=== PATIENT | male | born 1970 | race Caucasian/White ===

== ENCOUNTER 2016-08-07 13:49 | Emergency (ER) | payer OTHER ==
[~2016-08-07] VITALS: Wt 71.5 kg
[2016-08-07 13:55] VITALS: Wt 71.5 kg
[2016-08-07] MEDS ORDERED: KETOROLAC 30 MG INJ IM STA (15:04)
[2016-08-07] MEDS ORDERED: LYRI25 PO (15:08)
[2016-08-07] MEDS ORDERED: FLUO10CA17 PO (15:08)
[2016-08-07] MEDS ORDERED: IBUP-1542 PO (15:08)
[2016-08-07] MEDS ORDERED: LORAZEPAM 0.5 MG TAB PO ONE (15:30)
[2016-08-07] MEDS ORDERED: FLUOXETINE 20 MG CAP PO ONE (15:30)
[2016-08-07] MEDS ORDERED: FLUOXETINE 10 MG CAP PO ONE (15:30)
[2016-08-07 15:40] VITALS: BP 134/80; PULSE 100; RESP 20; TEMP 98.8
--- NOTE | 2016-08-25 19:53 | ERD ---
ER Documentation Chief Complaint Date/Time DATE: 08/25/16 TIME: 19:51 Chief Complaint BACK PAIN AND SUICIDAL IDEATION FOR THE PAST FEW DAYS. HX OF DEPRESION HPI 46-year-old woman with a history of back pain and depression presents with low back pain similar to previous episodes. She denies suicidal homicidal ideation and states she ran out of her fluoxetine and would like a refill of her antidepressant because she has been feeling depressed lately. She denies weight loss, no fevers or chills, no chest pain or shortness of breath, no paresis or paresthesias. Patient does have follow-up appointment with her PMD and psychiatrist. ROS All systems reviewed and are negative except as per history of present illness. Medications Home Meds Active Scripts Ibuprofen* (Ibuprofen*) 600 Mg Tablet, 600 MG PO Q8 for PAIN AND/OR INFLAMMATION , #30 TAB Prov:STEVEN RIVERA MD 08/07/16 Pregabalin* (Lyrica*) 25 Mg Capsule, 25 MG PO BID for PAIN, #30 CAP Prov:STEVEN RIVERA MD 08/07/16 Fluoxetine Hcl* (Fluoxetine Hcl*) 10 Mg Capsule, 10 MG PO DAILY, #30 CAP Prov:STEVEN RIVERA MD 08/07/16 Allergies Allergies: Coded Allergies: No Known Allergy (Unverified , 08/07/16) PMhx/Soc Depression, chronic back pain History of Surgery: Yes (back x 3) Anesthesia Reaction: No Hx Neurological Disorder: No Hx Respiratory Disorders: No Hx Cardiac Disorders: No Hx Psychiatric Problems: Yes (depression) Hx Miscellaneous Medical Probl: Yes (umbilical hernia ) Hx Alcohol Use: No Hx Substance Use: No Hx Tobacco Use: No Smoking Status: Never smoker FmHx Family History: No diabetes Physical Exam Vitals See nurse's notes Physical Exam GENERAL: Well-developed, well-nourished, well-hydrated, in no apparent distress , looks nontoxic in appearance HEENT: Moist mucous membranes, pink conjunctiva, no cervical spine tenderness or step-off deformities, no goiter, no jaundice or icterus, extraocular movements intact without pain. No submandibular induration, and no pharyngeal erythema NEURO: Alert and oriented 3, cranial nerves II through XII intact bilaterally, pupils equal round reactive to light, no focal deficits or facial asymmetry, sensation intact distally Strength 5/5 in upper and lower extremities bilaterally CARDIAC: Regular rate and rhythm, no murmurs rubs or gallops LUNGS: Clear bilaterally no wheezing crackles or stridor ABDOMEN: Soft nontender, no guarding, no rigidity, no rebound, no psoas sign no obturator sign. Normoactive bowel sounds SKIN: Warm and dry to touch, no abrasions, contusions, or hematomas, no lacerations, no ecchymosis, no target lesions, and without ulcers EXTREMITIES: No clubbing cyanosis or edema, calves are bilaterally symmetrical, no Homans sign, no popliteal cord sign. Distal pulses equal and bilateral PSYCH: Depressed affect Results 24 hrs Current Medications Medications (Trade) Dose Ordered Sig/Beverly Route PRN Reason Start Time Stop Time Status Last Admin Dose Admin Ketorolac Tromethamine (Toradol) 30 mg ONCE STAT IM 08/07/16 15:04 08/07/16 15:07 DC 08/07/16 15:23 Lorazepam (Ativan) 0.5 mg ONCE ONCE PO 08/07/16 15:30 08/07/16 15:31 DC 08/07/16 15:23 Fluoxetine HCl (Prozac) 10 mg ONCE ONCE PO 08/07/16 15:30 08/07/16 15:31 Cancel Fluoxetine HCl (Prozac) 10 mg ONCE ONCE PO 08/07/16 15:30 08/07/16 15:31 DC 08/07/16 15:30 Procedures/MDM I spoke to the patient at the bedside regarding her presentation and symptomatology, she simply would like a refill of her medications as fluoxetine in the past did help with depression, she denies active suicidal homicidal ideation at this time. I administered Toradol 30 mg intramuscular injection, fluoxetine and lorazepam orally for her symptoms with good effect. Differential diagnoses considered, included but not limited to acute coronary syndrome, pulmonary embolism, aortic dissection, abdominal aortic aneurysm, sepsis, stroke, meningitis, encephalitis, pneumonia, appendicitis, cholecystitis , bowel obstruction, pyelonephritis, nephrolithiasis, cystitis, as well as metabolic, hematologic, and electrolyte abnormalities. As well as abscess, cellulitis, fractures, and dislocations. Patient feels much better at this time, and vital signs are normal, symptoms have improved. I did give strict instructions to return to the ED if symptoms continue or worsen, patient will otherwise follow-up with primary care physician. Patient understood instructions and agreed to plan. Departure Diagnosis: Primary Impression: Back sprain Additional Impression: Depression Depression Type: major depressive disorder Major depression recurrence: single episode Active/Remission status: currently active Major depression episode severity: moderate Qualified Code: F32.1 - Moderate single current episode of major depressive disorder Condition: Good Patient Instructions: Back Sprain/Strain, Depression STEVEN RIVERA MD Aug 25, 2016 19:53
== END 2016-08-07 16:35 | disposition home or self-care (01) ==
LOC: E/R 13:49
DX: S33.9XXA Sprain of unspecified parts of lumbar spine and pelvis, initial encounter (principal); R40.2252 Coma scale, best verbal response, oriented, at arrival to emergency department; F32.1 Major depressive disorder, single episode, moderate; R40.2142 Coma scale, eyes open, spontaneous, at arrival to emergency department; R40.2362 Coma scale, best motor response, obeys commands, at arrival to emergency department; X58.XXXA Exposure to other specified factors, initial encounter; Y92.9 Unspecified place or not applicable
CPT/HCPCS: 96372; J1885

== ENCOUNTER 2016-09-24 12:06 | Emergency (ER) | payer OTHER ==
[~2016-09-24] VITALS: Wt 68.0 kg
[~2016-09-24 12:06] MED LIST: FLUO10CA17 PO; IBUP-1542 PO; LYRI25 PO
[2016-09-24 14:34] LABS: ADD SCAN DIFF NO
[2016-09-24 14:36] LABS: ABNORMAL IP MESSAGE 1; BASOPHILS % 0.5 % (0.0-2.0); EOSINOPHILS # 0.1 10^3/ul (0.0-0.5); EOSINOPHILS % 2.3 % (0.0-7.0); HEMATOCRIT 34.4 % (42.0-52.0); HEMOGLOBIN 11.1 g/dl (14.0-18.0); LYMPHOCYTES # 0.9 10^3/ul (0.8-2.9); LYMPHOCYTES % 23.8 % (15.0-51.0); MEAN CORPUSCULAR HEMOGLOBIN 26.5 pg (29.0-33.0); MEAN CORPUSCULAR HGB CONC 32.3 g/dl (32.0-37.0); MEAN CORPUSCULAR VOLUME 82.1 fl (82.0-101.0); MONOCYTE # 0.3 10^3/ul (0.3-0.9); MONOCYTES % 7.9 % (0.0-11.0); NEUTROPHIL # 2.6 10^3/ul (1.6-7.5); NEUTROPHILS % 65.5 % (39.0-77.0); RED BLOOD COUNT 4.19 10^6/ul (4.70-6.10); RED CELL DISTRIBUTION WIDTH 17.9 % (11.5-14.5); WHITE BLOOD COUNT 3.9 10^3/ul (4.8-10.8)
[2016-09-24 14:47] LABS: ALBUMIN 3.5 g/dl (3.3-4.9); CHLORIDE 104 mmol/L (97-110)
[2016-09-24 14:48] LABS: POTASSIUM 3.6 mmol/L (3.5-5.1); SODIUM 141 mmol/L (135-144)
[2016-09-24 14:50] LABS: ALANINE AMINOTRANSFERASE 30 IU/L (13-69); ALBUMIN/GLOBULIN RATIO 0.92; ALKALINE PHOSPHATASE 76 IU/L (42-121); ANION GAP 13 (8-16); ASPARTATE AMINO TRANSFERASE 39 IU/L (15-46); BILIRUBIN,INDIRECT 0.6 mg/dl (0-1.1); BILIRUBIN,TOTAL 0.6 mg/dl (0.2-1.3); BLOOD UREA NITROGEN 9 mg/dl (7-20); CALCIUM 8.7 mg/dl (8.4-10.2); CARBON DIOXIDE 28 mmol/L (21-31); GLUCOSE 173 mg/dl (70-220); TOTAL PROTEIN 7.3 g/dl (6.1-8.1)
[2016-09-24 14:51] LABS: ACETAMINOPHEN < 10.0 ug/ml (10.0-30.0); ADD UMIC YES; ETHANOL < 10.0 mg/dl; SALICYLATE < 1.0 mg/dl (5.0-30.0); URINE BILIRUBIN (Dip) NEGATIVE (NEGATIVE); URINE BLOOD (Dip) 3+ (NEGATIVE); URINE COLOR YELLOW (YELLOW); URINE KETONES (Dip) TRACE (NEGATIVE); URINE LEUKOCYTE ESTERASE (Dip) NEGATIVE (NEGATIVE); URINE NITRITE (Dip) NEGATIVE (NEGATIVE); URINE TOTAL PROTEIN (Dip) NEGATIVE (NEGATIVE); URINE UROBILINOGEN (Dip) 0.2 E.U./dL (0.1-1.0)
[2016-09-24 15:04] LABS: MUCUS,URINE RARE
[2016-09-24 15:13] LABS: BARBITURATES Negative (NEGATIVE); BENZODIAZEPINES Negative (NEGATIVE); CANNABINOIDS Negative (NEGATIVE); COCAINE Negative (NEGATIVE); OPIATES Negative (NEGATIVE)
[2016-09-24 15:28] LABS: PLATELET COUNT 76 10^3/UL (140-415)
[2016-09-24] MEDS ORDERED: IBUPROFEN 800 MG TAB PO ONE (15:30)
--- NOTE | 2016-09-24 15:39 | PSY ---
Date/Time of Note Date/Time of Note DATE: 09/24/16 TIME: 15:29 Psychiatric Subjective Eval Subjective Evaluation Chief Complaint: DEPRESSION AND SUICIDAL IDEATION FOR FEW MONTHS. NO PLAN .NO ETOH OR DRUGS Reason for consult: Suicidal ideation History of present illness This is a 46 year old single male who presented to the ED with complaints of auditory hallucinations and suicidal ideation. A sign language interpreter was used a this is his primary language. A psychiatric consult was requested due to his report of feeling suicidal. The patient was cooperative but guarded during the interview. He denied any history of substance abuse. He denied any family history. He did complain of having auditory hallucinations but would not say what the voices were saying. He also reports having problems with sleep and excessive worry. He reports a decline in appetite and loss of interest in things. He also reports that life is not worth living. He is currently unemployed. He denied any specific plan, but was clear that he was fearful that he may act in some manner to harm himself if not admitted. Past psychiatric history He denied any prior psychiatric history. Hospitalization: no Medical history Problems Medical Problems: (1) Back sprain Status: Acute (2) Back sprain Status: Acute (3) Depression Status: Acute (4) Depression Status: Acute (5) Suicidal ideation Status: Acute Allergies: Coded Allergies: No Known Allergy (Unverified , 09/24/16) Substance Abuse Substance use: No known substance abuse Social History Marital status: single Level of education: 9th grade DPA/Conservatorship: No Occupation/Group Home: unemployed Psychiatric Objective Eval Review of Systems: Review of Systems: Applicable Constitutional: Normal Eyes: Normal ENT: Normal Neck: Normal Respiratory: Normal Chest/Breast: Normal Cardiovascular: Normal GI: Normal Genitourinary: Normal Skin: Normal Lymphatic: Normal Musculoskeletal: Normal Neurological: Normal Other: Loss of appetite. Mental Status Examination: Appearance: Groomed Eye Contact: Good Psychomotor Activity: Normal Behavior: Cooperative, Guarded Speech: Clear AFFECT: Flat, Depressed Mood: Depressed Though Process: Linear Thought Content: Hallucinations Suicidal: Yes Homicidal: No Orientation: x4 Cognition: Alert Insight: Intact Judgement: Intact Attention Span: Intact Laboratory Results Laboratory Tests Test 09/24/16 14:20 Acetaminophen Level < 10.0ug/ml Alanine Aminotransferase (ALT/SGPT) 30IU/L Albumin 3.5g/dl Albumin/Globulin Ratio 0.92 Alkaline Phosphatase 76IU/L Anion Gap 13 Aspartate Amino Transf (AST/SGOT) 39IU/L Basophils # 0.010^3/ul Basophils % 0.5% Blood Urea Nitrogen 9mg/dl Calcium Level 8.7mg/dl Carbon Dioxide Level 28mmol/L Chloride Level 104mmol/L Creatinine 0.70mg/dl Direct Bilirubin 0.00mg/dl Eosinophils # 0.110^3/ul Eosinophils % 2.3% Ethyl Alcohol Level < 10.0mg/dl Globulin 3.80g/dl Glucose Level 173mg/dl Hematocrit 34.4% Hemoglobin 11.1g/dl Indirect Bilirubin 0.6mg/dl Lymphocytes # 0.910^3/ul Lymphocytes % 23.8% Mean Corpuscular Hemoglobin 26.5pg Mean Corpuscular Hemoglobin Concent 32.3g/dl Mean Corpuscular Volume 82.1fl Mean Platelet Volume fl Monocytes # 0.310^3/ul Monocytes % 7.9% Neutrophils # 2.610^3/ul Neutrophils % 65.5% Nucleated Red Blood Cells # 0.010^3/ul Nucleated Red Blood Cells % 0.0/100WBC Platelet Count 7610^3/UL Potassium Level 3.6mmol/L Red Blood Count 4.1910^6/ul Red Cell Distribution Width 17.9% Salicylates Level < 1.0mg/dl Sodium Level 141mmol/L Total Bilirubin 0.6mg/dl Total Protein 7.3g/dl Urine Amphetamines Screen Negative Urine Barbiturates Negative Urine Benzodiazepines Screen Negative Urine Bilirubin NEGATIVE Urine Cannabinoids Negative Urine Clarity CLEAR Urine Cocaine Screen Negative Urine Color YELLOW Urine Glucose 0.25%% Urine Hemoglobin 3+ Urine Ketones TRACE Urine Leukocyte Esterase NEGATIVE Urine Microscopic RBC 5-10/HPF Urine Microscopic WBC 0-2/HPF Urine Mucus RARE Urine Nitrite NEGATIVE Urine Opiates Screen Negative Urine Specific [place] 1.020 Urine Total Protein NEGATIVE Urine Urobilinogen 0.2 E.U./dL Urine pH 6.5 White Blood Count 3.910^3/ul Assessment and Plan Assessment/Diagnosis [place] I: F33.3 Major depression, severe with psychotic features. [place] II: deferred [place] III: No medical diagnosis [place] IV: problems with finances, problems with employment [place] V: 40 Recommendation/Plan Medication Management Suggest Olanzapine 5mg po bid and Zoloft 100mg daily. Suggest that he be admitted voluntarily to a psychiatric facility. [id number] Recommendation: No need for a hold at this time. LEWIS RAYMOND MD Sep 24, 2016 15:39
--- NOTE | 2016-09-24 16:16 | ERA ---
ER Documentation Chief Complaint Date/Time DATE: 09/24/16 TIME: 16:15 Chief Complaint DEPRESSION AND SUICIDAL IDEATION FOR FEW MONTHS. NO PLAN .NO ETOH OR DRUGS HPI Patient is a 46-year-old male with depression who presents with suicidal ideation. He said that he has had suicidal ideation for a long time but over the past month it was worse. He is thinking about it a lot. He would not give me a plan of how he would do it. He does not currently have a primary doctor or a psychiatrist. ROS All systems reviewed and are negative except as per history of present illness. Medications Home Meds Discontinued Scripts Ibuprofen* (Ibuprofen*) 600 Mg Tablet, 600 MG PO Q8 for PAIN AND/OR INFLAMMATION , #30 TAB Prov:STEVEN RIVERA MD 08/07/16 Pregabalin* (Lyrica*) 25 Mg Capsule, 25 MG PO BID for PAIN, #30 CAP Prov:STEVEN RIVERA MD 08/07/16 Fluoxetine Hcl* (Fluoxetine Hcl*) 10 Mg Capsule, 10 MG PO DAILY, #30 CAP Prov:STEVEN RIVERA MD 08/07/16 Allergies Allergies: Coded Allergies: No Known Allergy (Unverified , 09/24/16) PMhx/Soc History of Surgery: No Anesthesia Reaction: No Hx Neurological Disorder: No Hx Respiratory Disorders: No Hx Cardiac Disorders: No Hx Psychiatric Problems: No Hx Miscellaneous Medical Probl: Yes (BACK PAIN) Hx Alcohol Use: No Hx Substance Use: No Hx Tobacco Use: No Smoking Status: Unknown if ever smoked FmHx Family History: diabetes Physical Exam Vitals Vital Signs Date Time Temp Pulse Resp B/P Pulse Ox O2 Delivery O2 Flow Rate FiO2 09/24/16 12:19 98.8 102 20 133/81 98 Physical Exam Const: No acute distress Head: Atraumatic Eyes: Normal Conjunctiva ENT: Normal External Ears, Nose and Mouth. Neck: Full range of motion..~ No meningismus. Resp: Clear to auscultation bilaterally Cardio: Regular rate and rhythm, no murmurs Abd: Soft, non tender, non distended. Normal bowel sounds Skin: No petechiae or rashes Back: No midline or flank tenderness Ext: No cyanosis, or edema Neur: Awake and alert Psych: Depressed affect with positive suicidal ideation Result Diagram: 09/24/16 1420 09/24/16 1420 Results 24 hrs Laboratory Tests Test 09/24/16 14:20 Acetaminophen Level < 10.0ug/ml Alanine Aminotransferase (ALT/SGPT) 30IU/L Albumin 3.5g/dl Albumin/Globulin Ratio 0.92 Alkaline Phosphatase 76IU/L Anion Gap 13 Aspartate Amino Transf (AST/SGOT) 39IU/L Basophils # 0.010^3/ul Basophils % 0.5% Blood Urea Nitrogen 9mg/dl Calcium Level 8.7mg/dl Carbon Dioxide Level 28mmol/L Chloride Level 104mmol/L Creatinine 0.70mg/dl Direct Bilirubin 0.00mg/dl Eosinophils # 0.110^3/ul Eosinophils % 2.3% Ethyl Alcohol Level < 10.0mg/dl Globulin 3.80g/dl Glucose Level 173mg/dl Hematocrit 34.4% Hemoglobin 11.1g/dl Indirect Bilirubin 0.6mg/dl Lymphocytes # 0.910^3/ul Lymphocytes % 23.8% Mean Corpuscular Hemoglobin 26.5pg Mean Corpuscular Hemoglobin Concent 32.3g/dl Mean Corpuscular Volume 82.1fl Mean Platelet Volume fl Monocytes # 0.310^3/ul Monocytes % 7.9% Neutrophils # 2.610^3/ul Neutrophils % 65.5% Nucleated Red Blood Cells # 0.010^3/ul Nucleated Red Blood Cells % 0.0/100WBC Platelet Count 7610^3/UL Potassium Level 3.6mmol/L Red Blood Count 4.1910^6/ul Red Cell Distribution Width 17.9% Salicylates Level < 1.0mg/dl Sodium Level 141mmol/L Total Bilirubin 0.6mg/dl Total Protein 7.3g/dl Urine Amphetamines Screen Negative Urine Barbiturates Negative Urine Benzodiazepines Screen Negative Urine Bilirubin NEGATIVE Urine Cannabinoids Negative Urine Clarity CLEAR Urine Cocaine Screen Negative Urine Color YELLOW Urine Glucose 0.25%% Urine Hemoglobin 3+ Urine Ketones TRACE Urine Leukocyte Esterase NEGATIVE Urine Microscopic RBC 5-10/HPF Urine Microscopic WBC 0-2/HPF Urine Mucus RARE Urine Nitrite NEGATIVE Urine Opiates Screen Negative Urine Specific [place] 1.020 Urine Total Protein NEGATIVE Urine Urobilinogen 0.2 E.U./dL Urine pH 6.5 White Blood Count 3.910^3/ul Current Medications Medications (Trade) Dose Ordered Sig/Beverly Route PRN Reason Start Time Stop Time Status Last Admin Dose Admin Ibuprofen (Motrin) 800 mg ONCE ONCE PO 09/24/16 15:30 09/24/16 15:31 DC 09/24/16 15:23 Procedures/MDM Patient is a 46-year-old male presents with depression and suicidal thoughts. He will not give me a clear plan of how he would do the suicide. However I am concerned about his suicidal ideation. He is willing to go to a voluntary psychiatric facility for treatment. He is now medically cleared. He was seen by psychiatry who did recommend medications as well as voluntary psychiatric treatment. The patient will be transferred by ambulance to a psychiatric facility. He has anemia but does not require blood transfusion at this time. Departure Diagnosis: Primary Impression: Suicidal ideation Additional Impression: Depression Qualified Code: F32.9 - Depression, unspecified depression type Condition: NABIL Tyson MD Sep 24, 2016 16:16
[2016-09-24] MEDS: SERTRALINE 100 MG TAB PO SCH (18:22)
[2016-09-24] MEDS ORDERED: HYDROCODONE/APAP (10/325) TAB PO ONE (21:00)
[2016-09-24] MEDS: OLANZAPINE (ODT) 5 MG TAB ODT SCH (21:00)
[2016-09-25] MEDS: OLANZAPINE (ODT) 5 MG TAB ODT SCH ×2 (09:00→19:19)
[2016-09-25] MEDS: SERTRALINE 100 MG TAB PO SCH (09:00)
[2016-09-25 18:54] VITALS: BP 165/88; PULSE 63; RESP 17; TEMP 98.6
[2016-09-25] MEDS ORDERED: NICARDipine HCL 30 MG CAPSULE PO ONE (19:00)
== END 2016-09-25 19:40 | disposition short-term general hospital (02) ==
LOC: E/R 12:06
DX: F32.9 Major depressive disorder, single episode, unspecified (principal); R40.2252 Coma scale, best verbal response, oriented, at arrival to emergency department; R45.851 Suicidal ideations; R40.2142 Coma scale, eyes open, spontaneous, at arrival to emergency department; R40.2362 Coma scale, best motor response, obeys commands, at arrival to emergency department
CPT/HCPCS: 36415; 80053; 80306; 80307; 81001; 81003; 85025; 99285

== ENCOUNTER 2016-11-05 11:02 | Emergency (ER) | payer OTHER ==
[~2016-11-05] VITALS: Ht 157.5 cm; Wt 71.0 kg
[2016-11-05 11:08] VITALS: Ht 157.5 cm; Wt 71.0 kg
[2016-11-05] MEDS ORDERED: NAPR-260 PO (11:23)
--- NOTE | 2016-11-05 11:29 | ERD ---
ER Documentation Chief Complaint Date/Time DATE: 11/05/16 TIME: 11:26 Chief Complaint FEELS DEPRESSED AND ANXIOUS TAKES ZOLOFT HASNT TAKEN IT IN 5 DAYS HPI 46-year-old male with a history of lumbar spinal fusion with chronic back pain and depression and anxiety. He is requesting a refill of his Zoloft and Zyprexa that were prescribed him one month ago at a [facility]. He states he ran out about 4 days ago and has not been feeling well. But he denies any suicidal or homicidal ideations at this time. He denies any new onset weakness or numbness in his lower extremities. He has no change in bowel and bladder habits. No dysuria. No fevers or chills. ROS All systems reviewed and are negative except as per history of present illness. Medications Home Meds Active Scripts Olanzapine* (Olanzapine*) 15 Mg Tablet, 10 MG PO QHS, #30 TAB Prov:KERRI ALDANA MD 11/05/16 Sertraline Hcl* (Sertraline Hcl*) 50 Mg Tablet, 50 MG PO DAILY, #30 TAB Prov:KERRI ALDANA MD 11/05/16 Naproxen* (Naprosyn*) 500 Mg Tablet, 500 MG PO BID Y for PAIN AND/OR INFLAMMATION, #30 TAB Prov:KERRI ALDANA MD 11/05/16 Allergies Allergies: Coded Allergies: No Known Allergy (Unverified , 09/24/16) PMhx/Soc Medical and Surgical Hx: pt denies Surgical Hx History of Surgery: No Anesthesia Reaction: No Hx Neurological Disorder: No Hx Respiratory Disorders: No Hx Cardiac Disorders: No Hx Psychiatric Problems: Yes (Anxiety, depression) Hx Miscellaneous Medical Probl: Yes (BACK PAIN) Hx Alcohol Use: No Hx Substance Use: No Hx Tobacco Use: No FmHx Family History: No diabetes Physical Exam Vitals Vital Signs Date Time Temp Pulse Resp B/P Pulse Ox O2 Delivery O2 Flow Rate FiO2 11/05/16 11:08 98.5 91 18 129/82 100 Physical Exam INITIAL VITAL SIGNS: Reviewed by me GENERAL: Well appearing, non toxic, speaking in full sentences. HEENT: Atraumatic, Moist mucous membranes NECK: Supple. RESPIRATORY: No respiratory distress. EXTREMITIES: No clubbing or cyanosis. No edema SKIN: Warm, dry. NEUROLOGIC: A&Ox4. No facial asymmetry. Normal speech. Strength and sensations intact in bilateral lower extremities. Psych: M/S: Alert and oriented Mood/Affect: Flat, depressed Speech: Normal Insight: Normal Hallucinations: None SI or HI: None Procedures/MDM Patient is presenting with chronic back pain and requesting medication refills. The patient is neurovascularly intact on exam with unremarkable vitals. I have a low suspicion for spinal tumor as the patient has no history of cancer, night sweats, or weight loss. I have a low suspicion for bone or disc infection , cauda equina, cord compression, acute spinal fracture, infiltrative, or infectious etiology. I discussed with the patient that I could not prescribe him narcotics at this time and that he would need to see chronic pain management for that. However I did offer him naproxen, which she accepted the prescription for. I refilled his Zoloft and Zyprexa and advised he follow-up with [facility] for further evaluation and for further refills. Patient is agreeable to the plan. I gave him a list of community clinics Departure Diagnosis: Primary Impression: Chronic back pain Back pain location: low back pain Back pain laterality: bilateral Sciatica presence: without sciatica Qualified Code: M54.5 - Chronic bilateral low back pain without sciatica Additional Impression: Anxiety Condition: Stable Patient Instructions: Understanding Anxiety Disorders, Chronic Pain Referrals: [facility] Usted se witt hecho un examen mdico de control que le indica que no est en serjio condicin que requiera tratamiento urgente en el Departamento de Emergencia. Un estudio ms profundo y el tratamiento de roblero condicin pueden esperar sin ningn riesgo hasta que usted sea atendida/o en el consultorio de roblero mdico o serjio cl seymour. Es responsabilidad suya arreglar serjio lor para el seguimiento del peggy. MANEJO DE CONDICIONES NO URGENTES EN EL FUTURO 1) Si usted tiene un mdico de atencin primaria: Usted debera llamar a roblero mdico de atencin primaria antes de venir al departamento de emergencia. Despus de las horas de consultorio, roblero doctor o roblero asociado/a est disponible por telfono. El mdico o enfermero de daly en el servicio telefnico puede asesorarle por martha medio para atender el problema, o peggy contrario se puede programar serjio lor. 2) Si usted no tiene un mdico de atencin primaria: Llame al mdico o clnica de referencia que aparece abajo che las horas de consultorio para hacer serjio lor para que le vean. CLINICAS: [facility] [phone] [facility] [phone] [facility] [phone] [address] [facility]. [place] [id number] [phone] [facility] [place] [address] [phone] [facility] [phone] [address] [facility] () Usted se witt hecho un examen mdico de control que le indica que no est en serjio condicin que requiera tratamiento urgente en el Departamento de Emergencia. Un estudio ms profundo y el tratamiento de roblero condicin pueden esperar sin ningn riesgo hasta que usted sea atendida/o en el consultorio de roblero mdico o serjio cl seymour. Es responsabilidad suya arreglar serjio lor para el seguimiento del peggy. MANEJO DE CONDICIONES NO URGENTES EN EL FUTURO 1) Si usted tiene un mdico de atencin primaria: Usted debera llamar a roblero mdico de atencin primaria antes de venir al departamento de emergencia. Despus de las horas de consultorio, roblero doctor o roblero asociado/a est disponible por telfono. El mdico o enfermero de daly en el servicio telefnico puede asesorarle por martha medio para atender el problema, o peggy contrario se puede programar serjio lor. 2) Si usted no tiene un mdico de atencin primaria: Llame al mdico o condado institucions de referencia que aparece abajo che las horas de consultorio para hacer serjio lor para que le vean. SI USTED NO PUEDE PAGAR PARA MARISOL UN MEDICO puede ir a: [facility] [id number] [place] [address] [place] [facility] [address] [place] [address] [facility] [address] [place] [address] [facility] [facility] [address] [place], [place] [id number] Additional Instructions: Ir a la clnica de [facility] se discuti. Usted necesita encontrar un mdico de atencin primaria para que pueda manejar roblero dolor cr lam. He proporcionado serjio lista de clnicas. KERRI ALDANA MD Nov 05, 2016 11:29
[2016-11-05] MEDS ORDERED: OLAN15TA7 PO (11:30)
[2016-11-05] MEDS ORDERED: SERT50TA6 PO (11:30)
== END 2016-11-05 11:47 | disposition home or self-care (01) ==
LOC: E/R 11:02
DX: M54.5 Low back pain (principal); F41.9 Anxiety disorder, unspecified
CPT/HCPCS: 99284